=== PATIENT | female | born 1975 | race Caucasian/White ===

== ENCOUNTER 2022-07-12 02:10 | Emergency (ER) | payer SELFPAY ==
[~2022-07-12] VITALS: Ht 167.6 cm; Wt 65.8 kg
--- NOTE | 2022-07-12 02:20 | NUR ---
TO ER BED 8. [id number]. C/O FOREIGN BODY IN THROAT. REPORTS EATING SALTINE CRACKERS & ENSURE. PT IS ALERT AND ORIENTED. NOT IN RESPIRATORY DISTRESS. CONNECTED TO MONITOR. AWAITING MD HARPER
[2022-07-12] MEDS ORDERED: IV NS 0.9% 1,000 ML BAG IV ONE (02:30)
[2022-07-12] MEDS ORDERED: GLUCAGON,HUMAN RECOMBINANT 1 MG/VIAL VIAL IV ONE (02:30)
[2022-07-12] MEDS ORDERED: ONDANSETRON HCL/PF 4 MG/2 ML VIAL IVP ONE (02:30)
[2022-07-12] MEDS ORDERED: ONDANSETRON HCL/PF 4 MG/2 ML VIAL ONE (02:55)
[2022-07-12] MEDS ORDERED: GLUCAGON,HUMAN RECOMBINANT 1 MG/VIAL VIAL ONE (02:55)
[2022-07-12 03:01] LABS: BASOPHILS % (AUTO) 0.3 % (0.0-2.0); EOSINOPHILS % (AUTO) 0.8 % (0.0-6.0); HEMATOCRIT 41 % (33-45); HEMOGLOBIN 13.7 g/dL (11.5-14.8); LYMPHOCYTES # (AUTO) 1.8 K/uL (0.8-4.8); LYMPHOCYTES % (AUTO) 15.7 % (20.0-44.0); MEAN CORPUSCULAR HGB CONC 34 g/dl (31.0-36.0); MEAN CORPUSCULAR VOLUME 97 fL (82-100); MONOCYTES # (AUTO) 0.9 K/uL (0.1-1.30); MONOCYTES % (AUTO) 7.6 % (2.0-12.0); NEUTROPHILS # (AUTO) 8.8 K/uL (1.8-8.9); NEUTROPHILS % (AUTO) 75.6 % (43.0-81.0); PLATELET COUNT (AUTO) 255 K/uL (150-450); RED BLOOD CELL COUNT(AUTO) 4.19 MIL/uL (4.0-5.2); WHITE BLOOD COUNT (AUTO) 11.7 K/uL (4.3-11.0)
[2022-07-12 03:12] LABS: CALCIUM, SERUM 9.9 mg/dL (8.5-10.1); CREATININE 1.1 mg/dL (0.6-1.3); POTASSIUM 3.5 mmol/L (3.5-5.1)
--- NOTE | 2022-07-12 03:14 | NUR ---
BLOOD COLLECTED AND SENT TO LAB
--- NOTE | 2022-07-12 03:14 | NUR ---
IV LINE ESTABLISHED , [id number]
[2022-07-12 03:18] LABS: BILIRUBIN,DIRECT 0.3 mg/dL (0.0-0.2); BILIRUBIN,TOTAL 1.1 mg/dL (0.2-1.0); TOTAL PROTEIN, SERUM 7.7 g/dL (6.4-8.2)
[2022-07-12] MEDS ORDERED: LORAZEPAM INJ 2 MG/ML VIAL IV ONE (04:00)
[2022-07-12] MEDS ORDERED: LORAZEPAM INJ 2 MG/ML VIAL ONE (04:14)
[2022-07-12 04:28] LABS: BILIRUBIN,URINE NEGATIVE (NEGATIVE); COLOR,URINE YELLOW (YELLOW); LEUKOCYTE ESTERASE ,URINE LARGE (NEGATIVE); NITRITE, URINE NEGATIVE (NEGATIVE); PROTEIN,URINE 30 mg/dl (NEGATIVE); UGLUCOSE NEGATIVE (NEGATIVE); UROBILINOGEN,URINE 0.2 EU/dL (0.2)
[2022-07-12 04:31] LABS: BACTERIA,URINE Rare /HPF (None Seen); RBC,URINE 0-2 /HPF (0-2); SQUAMOUS EPITHELIAL CELL,UR Few /HPF (None Seen)
[2022-07-12] MEDS ORDERED: CEPHALEXIN MONOHYDRATE 500 MG CAPSULE PO ONE ×2 (05:49→06:00)
[2022-07-12] MEDS ORDERED: CEPH500T PO (05:52)
--- NOTE | 2022-07-12 06:06 | NUR ---
Patient discharged to home in stable condition. Written and verbal after care instructions given. Patient verbalizes understanding of instruction.
--- NOTE | 2022-07-12 06:06 | NUR ---
IV removed. Catheter intact and site benign. Pressure and 4x4 applied to site. No bleeding noted.
[2022-07-12 06:26] VITALS: BP 147/75
== END 2022-07-12 06:26 | disposition home or self-care (01) ==
LOC: ER 02:18
DX: R09.89 Other specified symptoms and signs involving the circulatory and respiratory systems (principal); F41.9 Anxiety disorder, unspecified; N39.0 Urinary tract infection, site not specified; M54.2 Cervicalgia
CPT/HCPCS: 99284; 96374; 70490; 96375; 96361; 85025; 80048; 87086; 80076; 81001; 36415; 85730; J1610; J2060; J2405; J7030